=== PATIENT | female | born 1955 | race Caucasian/White ===

== ENCOUNTER 2017-10-04 08:19 | Day surgery (SDC) | payer OTHER, SELFPAY ==
[2017-10-04] MEDS: NS 1,000 ML IV (10:00)
[2017-10-04] MEDS ORDERED: PROPOFOL 200 MG/20 ML VIAL As Ordered ×2 (10:06→11:18)
[2017-10-04] MEDS ORDERED: LIDOCAINE 2% INJ 100 MG/5 ML SDV (FOR ANES.) As Ordered (10:06)
== END 2017-10-04 11:32 | disposition home or self-care (01) ==
LOC: M OPP 08:19
DX: Z12.11 Encounter for screening for malignant neoplasm of colon (principal); D12.5 Benign neoplasm of sigmoid colon; K64.8 Other hemorrhoids; Z86.010 Personal history of colon polyps; E11.9 Type 2 diabetes mellitus without complications; E78.00 Pure hypercholesterolemia, unspecified; E03.9 Hypothyroidism, unspecified; R01.1 Cardiac murmur, unspecified; Z79.82 Long term (current) use of aspirin; Z79.84 Long term (current) use of oral hypoglycemic drugs; Z79.899 Other long term (current) drug therapy; Z87.828 Personal history of other (healed) physical injury and trauma; Z82.49 Family history of ischemic heart disease and other diseases of the circulatory system; Z83.3 Family history of diabetes mellitus; Z80.41 Family history of malignant neoplasm of ovary; Z80.8 Family history of malignant neoplasm of other organs or systems
CPT/HCPCS: 45385

== ENCOUNTER → 2017-11-28 | Outpatient (CLI) | payer BC ==
[2017-11-28 09:27] LABS: BASO % 0.4 % (0.0-1.0); EOS # 0.2 10^3/uL (0.0-0.50); EOS % 1.9 % (0.0-3.0); HEMATOCRIT 37.4 % (36.0-47.0); IMMATURE GRANULOCYTE % 0.5 % (0-3.0); LYMPH # 2.8 10^3/uL (1.5-4.5); LYMPH % 33.4 % (24.0-44.0); MEAN CORPUSCULAR HEMOGLOBIN 28.5 pg (27.0-33.0); MEAN CORPUSCULAR HGB CONC 32.1 g/dl (32.0-36.5); MEAN CORPUSCULAR VOLUME 88.8 fl (80.0-96.0); MONO # 0.5 10^3/uL (0.0-0.8); MONO % 6.5 % (0.0-5.0); NEUTROPHILS # 4.8 10^3/uL (1.8-7.7); NEUTROPHILS % 57.3 % (36.0-66.0); PLATELET COUNT, AUTOMATED 223 10^3/uL (150-450); RED BLOOD COUNT 4.21 10^6/uL (4.00-5.40); RED CELL DISTRIBUTION WIDTH 12.8 % (11.5-14.5); WHITE BLOOD COUNT 8.4 10^3/uL (4.0-10.0)
[2017-11-28 10:01] LABS: ALBUMIN 3.8 GM/DL (3.2-5.2); ALBUMIN/GLOBULIN RATIO 1.19 (1.00-1.93); ALKALINE PHOSPHATASE 72 U/L (45-117); ALT/SGPT 28 U/L (12-78); ANION GAP 8 MEQ/L (8-16); AST/SGOT 12 U/L (7-37); BILIRUBIN,TOTAL 0.3 MG/DL (0.2-1.0); BLOOD UREA NITROGEN 25 MG/DL (7-18); CALCIUM LEVEL 9.5 MG/DL (8.8-10.2); CARBON DIOXIDE LEVEL 27 MEQ/L (21-32); CHLORIDE LEVEL 107 MEQ/L (98-107); CREATININE FOR GFR 0.87 MG/DL (0.55-1.30); GLOMERULAR FILTRATION RATE > 60.0 (>45); GLUCOSE, FASTING 125 MG/DL (70-100); SODIUM LEVEL 142 MEQ/L (136-145)
== END ==
LOC: M LAB 08:46
DX: I11.9 Hypertensive heart disease without heart failure (principal); I49.3 Ventricular premature depolarization; I35.1 Nonrheumatic aortic (valve) insufficiency
CPT/HCPCS: 83735

== ENCOUNTER 2019-02-03 12:14 | Day surgery (SDC) | payer BC ==
[~2019-02-03] VITALS: Ht 157.5 cm; Wt 68.4 kg
[~2019-02-03 12:14] MED LIST: ASPI81TA26 PO; ATOR1TAB19 PO; CHLO125TA PO; D3 U5000 PO; FLEC50HA PO; LEVO75TA4 PO; LISI10TA4 PO; METF500T13 PO; NS 1,000 ML IV ONE; PANT20TA2 PO; VITA100018 PO; VITA100067 PO
[2019-02-03] MEDS ORDERED: PROPOFOL 200 MG/20 ML VIAL As Ordered ONE (14:52)
[2019-02-03] MEDS ORDERED: LIDOCAINE 2% INJ 100 MG/5 ML SDV (FOR ANES.) As Ordered ONE (14:52)
--- NOTE | 2019-02-03 15:07 | ROOR ---
Patient Name: Khloe Hilario Procedure Date: 02/03/2019 2:50 PM Date of : 1955 Age: 64 Room: [facility] Gender: Female Note Status: Finalized Procedure: Upper GI endoscopy Indications: Epigastric abdominal pain, Abnormal CT of the GI tract Providers: Laron SHARPE MD Referring MD: Jocelin CORRALES MD Requesting Provider: Medicines: Monitored Anesthesia Care Complications: No immediate complications. Procedure: Pre-Anesthesia Assessment: - The heart rate, respiratory rate, oxygen saturations, blood pressure, adequacy of pulmonary ventilation, and response to care were monitored throughout the procedure. The Endoscope was introduced through the mouth, and advanced to the second part of duodenum. The upper GI endoscopy was accomplished without difficulty. The patient tolerated the procedure well. Findings: The Z-line was irregular and was found 38 cm from the incisors. This was biopsied with a cold forceps for evaluation to rule out Dean's Esophagus. The exam of the esophagus was otherwise normal. The entire examined stomach was normal. The examined duodenum was normal. Impression: - Z-line irregular (single 6-8 mm tongue of salmon colored mucosa), 38 cm from the incisors. Biopsied. - Otherwise normal esophagus. - Normal stomach. - Normal examined duodenum. Recommendation: - Continue present medications. - Use a proton pump inhibitor PO daily. - Telephone endoscopist for pathology results in 2 weeks. Laron Sharpe MD Laron SHARPE MD 02/03/2019 3:06:56 PM Electronically signed by Laron SHARPE MD Number of Addenda: 0 Note Initiated On: 02/03/2019 2:50 PM Estimated Blood Loss: Estimated blood loss: none.
[2019-02-03 15:25] VITALS: BP 150/84
== END 2019-02-03 15:36 | disposition home or self-care (01) ==
LOC: M OPP 12:14
PROVIDERS: ATTEND Internal Medicine Gastroenterology
DX: K22.8 Other specified diseases of esophagus (principal); R10.13 Epigastric pain; R93.3 Abnormal findings on diagnostic imaging of other parts of digestive tract; K21.9 Gastro-esophageal reflux disease without esophagitis; E11.9 Type 2 diabetes mellitus without complications; Z79.899 Other long term (current) drug therapy; Z80.8 Family history of malignant neoplasm of other organs or systems; Z80.41 Family history of malignant neoplasm of ovary

== ENCOUNTER → 2023-03-09 | Outpatient (REF) | payer OTHER ==
[~2023-03-09] MED LIST changes: +LISI10TA22 PO; -LISI10TA4 PO; -NS 1,000 ML IV ONE; -PANT20TA2 PO; +PANT20TA6 PO
== END ==
LOC: M SFHCPLAZ 12:19
PROVIDERS: ATTEND Nurse Practitioner Family
DX: D48.9 Neoplasm of uncertain behavior, unspecified (principal)

== ENCOUNTER → 2024-08-25 | Outpatient (CLI) | payer MEDICARE | LOC: M CARPUL 11:09 | PROVIDERS: ATTEND Registered Nurse | DX: I35.1 Nonrheumatic aortic (valve) insufficiency (principal); I11.9 Hypertensive heart disease without heart failure ==